=== PATIENT | male | born 2005 | race Caucasian/White ===

== ENCOUNTER 2024-04-17 17:46 | Emergency (ER) | payer BC, SELFPAY ==
--- NOTE | 2024-04-17 17:50 | ED.URI ---
HPI - URI/Sore Throat General Chief Complaint: Skin/Abscess/Foreign Body Stated Complaint: rash on Arm Time Seen by Provider: 04/17/24 18:06 Source: patient, RN notes reviewed and old records reviewed Mode of arrival: ambulatory Limitations: no limitations History of Present Illness HPI Narrative: 18-year-old male presents to the [facility] with 2 week history of rash to bilateral outer arms, lower abdomen bilateral. Recently changed laundry detergent. Patient describes the rash is very itchy. Onset (ago): week(s) (2) Related Data Allergies Allergy/AdvReac Type Severity Reaction Status Date / Time amoxicillin (From Augmentin) Allergy Mild Unknown Verified 04/17/24 18:08 clavulanic acid (From Allergy Mild Unknown Verified 04/17/24 18:08 Augmentin) hepatitis a immune Allergy Mild HIVES X 1 Verified 04/17/24 18:08 globulin,human MONTH meningococcal vaccine A and C Allergy Unknown Swelling Verified 04/17/24 18:08 Penicillins Allergy Unknown Rash Verified 04/17/24 18:08 Review of Systems Review of Systems: All systems reviewed & are unremarkable except as noted in HPI and below Constitutional: Constitutional: Reports no additional constitutional complaints ENT: Reports system reviewed and no additional complaints, except as documented Cardiovascular: Cardiovascular: Reports no additional cardiovascular complaints, Denies chest pain and Denies dyspnea Respiratory: Respiratory: Reports no additional respiratory complaints, Denies chest congestion, Denies cough and Denies dyspnea Musculoskeletal: Musculoskeletal: Reports no additional musculoskeletal complaints Integumentary/Breasts: Skin/Breast: Reports as per HPI and Reports rash PMFSH Comments At the time of my signature, I reviewed and agree with the nursing past medical, surgical, social, and family history. There is no relevant family history pertinent to the patient complaint. Exam Const: General: cooperative, healthy appearing, comfortable, no acute distress, well developed, alert and well nourished Nutritional Appearance: well nourished Orientation/consciousness: patient oriented x3 Limitations: no limitations HENMT: Head: normal to inspection Eyes: General: appearance normal, both eyes and all related structures Alignment and Position: alignment normal Neck: Neck: normal visual inspection, full ROM, no lymphadenopathy and no meningeal signs Chest: Chest palpation & inspection: normal inspection of the chest Resp: Effort & Inspection: normal respiratory effort and able to speak in complete sentences Auscultation: clear to auscultation bilaterally, no crackles, no rales, no rhonchi and no wheezes Cardio: Rate: regular rate Skin: Rashes: rashes noted Other: Rash is bilateral outer arms, worse on the left than the right. Left arm cleaned had multiple areas of induration, mild swelling. Also concern for cellulitic changes to the left outer upper arm. Areas to bilateral outer abdomen with similar rash, states that has not been there as long. Neuro: General: patient oriented x3, gait normal, moves all extremities and no meningeal signs Cognition (Neuro): normal cognition Speech: normal speech Gait exam (Neuro): Normal gait present Extrem: General: normal to inspection, full ROM, capillary refill normal and normal gait Psych: Appearance: grossly normal and well kempt Mental Status: mental status grossly normal Speech and movement: Normal speech and movement present and Clear speech present Affect: normal affect Attitude: cooperative Course Course Level of Care: Express Care Visit Vital Signs Vital signs: Vital Signs Temperature 98.2 F 04/17/24 17:57 Pulse Rate 73 04/17/24 17:57 Respiratory Rate 18 04/17/24 17:57 Blood Pressure 133/68 04/17/24 17:57 Pulse Oximetry 100 04/17/24 17:57 Oxygen Delivery Room Air 04/17/24 17:57 Temperature 98.2 F 04/17/24 17:57 Pulse Rate 73 04/17/24 17:57 Respiratory Rate 18 04/17/24 17:57 Blood Pressure 133/68 04/17/24 17:57 Pulse Oximetry 100 04/17/24 17:57 Oxygen Delivery Room Air 04/17/24 17:57 Reviewed MDM - URI/Sore Throat MDM Narrative Medical decision making narrative: Patient with rash after changing laundry detergent. Right arm appears to be dermatitis, left arm concern for both dermatitis, has been scratching and was dirty on arrival, cleaned with soap and water. Concern for cellulitic changes to the left outer upper arm. No fluctuance. No purulent drainage. Denies fevers. Patient is appropriate for outpatient treatment with close follow-up. Discussed signs and symptoms proceed to emergency room which he verbalized understanding. Discharge instructions reviewed with patient, as well as provided in writing per nursing staff. The instructions also include specific and strict return/GO TO THE ER as well as f/u information. All questions have been answered, and the patient deny any further questions with discharge and discharge plan. Some parts of this dictation were generated by voice recognition software and may contain typographical and/or grammatical inaccuracies. Differential Diagnosis Differential diagnosis: Likely other (Cellulitis, dermatitis, allergic reaction, hives) Critical Care Time Critical Care Time Critical Care Time: No Discharge Plan Discharge Clinical Impression: Dermatitis Patient Disposition: Home, Self-Care Condition: Stable Instructions: Antibiotic Form, Dermatitis (ED) Additional Instructions: The most important part of your care is follow up with Primary care provider. Take Benadryl 25 mg every 8 hours for itching Take Zyrtec every day Take Pepcid 20mg daily for 7 days Take the steroids starting in the morning Apply hydrocortisone twice daily Avoid hot showers, Take cool showers. Hot showers will make rashes worse Apply cool compresses every 2-3 hours for 15 minutes Go to the ER for new or worsening symptoms such as shortness of breath. Patient Language: Dutch Prescriptions: New prednisone 20 mg tablet See Rx Instructions .Route .COMPLEX Qty: 18 0RF Rx Instructions: Take 60 mg daily for 3 days, 40 mg daily for 3 days, 20 mg daily for 3 days doxycycline monohydrate 100 mg tablet 100 mg PO BID Qty: 14 0RF Follow-up/Referrals: UNKNOWN,DOCTOR [Non-Staff] - Time of Disposition: 18:11
[2024-04-17 17:57] VITALS: BP 133/68; PULSE 73; RESP 18; TEMP 36.8; O2SAT 100
--- OUTSIDE RECORDS SUMMARY | 2024-04-17 19:00 | XMS_ITS | Patient Health Summary ---
Author Organization [facility] Address [address] [place] [address] Care Team Providers Care Assistant Field Hockey Coach Name Role Phone Alex Estrada MD Primary Care Provider [phone] Note from [facility],non-owned Affiliates and Associated Physician Practices is amultiple site organization consisting of ambulatory clinics and hospital sitesin [place], [place], [place] and [place]. This disclosure is being madepursuant to the Care Everywhere program and may not contain all information available regarding this patient. Last updated 17.[facility] [place] Allergies * Augmentin * Penicillins Medications * Be aware that medications may not be up to date on this document. Alwaysverify current medications with the patient. * ibuprofen (MOTRIN) 200 MG tablet Take by mouth every 6 hours as needed for Pain Active Problems Problem Noted Date Diagnosed Date Closed Salter-Norris type II physeal fracture of distal end of right radius 10/15/2016 Closed fracture of radius 10/15/2016 Social History Tobacco Use Types Packs/Day Years Used Date Smoking Tobacco: Never Sex and Gender Information Value Date Recorded Sex Assigned at Not on file Gender Identity Not on file Sexual Orientation Not on file Last Filed Vital Signs Vital Sign Reading Time Taken Comments Blood Pressure - - Pulse - - Temperature - - Respiratory Rate - - Oxygen Saturation - - Inhaled Oxygen Concentration - - Weight 64.2 kg (141 lb 8.6 oz) 11/12/2016 8:47 A M CDT Height 154.8 cm (5' 0.95 ) 10/15/2016 8:53 AM CD T Body Mass Index - - Care Teams Assistant Field Hockey Coach Relationship Specialty Start Date End Date Alex Estrada MD [address] [place] [address] PCP - General Pediatrics 10/15/16
--- OUTSIDE RECORDS SUMMARY | 2024-04-17 19:00 | XMS_ITS | Referral Summary ---
Author Organization [facility] Address [address] [place] [address] Care Team Providers Care Support Engineer Name Role Phone Alex Estrada MD Primary Care Provider [phone] Source Comments [facility],non-owned Affiliates and Associated Physician Practices is amultiple site organization consisting of ambulatory clinics and hospital sitesin [place], [place], [place] and [place]. This disclosure is being madepursuant to the Care Everywhere program and may not contain all information available regarding this patient. Last updated 17.[facility] Allergies Active Allergy Reactions Criticality Noted Date Comments Augmentin 11/12/2016 Penicillins 10/15/2016 Medications * Be aware that medications may not be up to date on this document. Alwaysverify current medications with the patient. Medication Sig Dispensed Refills Start Date End Date Status ibuprofen (MOTRIN) 200 MG tablet Take by mouth every 6 hours as needed for Pain Active Active Problems Problem Noted Date Diagnosed Date [...] CD T Body Mass Index - - Plan of Treatment Not on file Care Teams Support Engineer Relationship Specialty Start Date End Date Alex Estrada MD [address] [place] [address] PCP - General Pediatrics 10/15/16
--- OUTSIDE RECORDS SUMMARY | 2024-04-17 19:00 | XMS_ITS | Clinical Summary ---
Author Organization [facility] Address [address] [place] [address] Care Team Providers Care Data Modeler Name Role Phone Alex Estrada MD Primary Care Provider Source Comments [facility],non-owned Affiliates and Associated Physician Practices is amultiple site organization consisting of ambulatory clinics and hospital sitesin [place], [place], [place] and [place]. This disclosure is being madepursuant to the Care Everywhere program and may not contain all information available regarding this patient. Last updated 17.[facility] Allergies Active Allergy Reactions Criticality Noted Date [...] Mass Index - - Plan of Treatment Health Maintenance Due Date Last Done Comments HIV SCREENING 10/19/2019 HPV VACCINE (1 - Male 3-dose series) 10/19/2019 MENINGOCOCCAL (Group B) VACC INE (1 of 2 - Standard) 2020 HEPATITIS C SCREENING 10/14/2022 DTAP/TDAP/TD VACCINES (1 - Tdap) 10/19/2023 HEPATITIS B VACCINE (1 of 3 - 19+ 3-dose series) 10/19/2023 COVID-19 VACCINE (1 - 2023-2 5 season) 2023 INFLUENZA VACCINE (#1) 2023 DEPRESSION SCREENING 02/23/2024 ZOSTER VACCINE (1 of 2) 2054 HIB VACCINE Aged Out No longer eligi ble based on patient's age to complete this topic MENINGOCOCCAL VACCINE Aged Out No bridger bryson eligible based on patient's age to complete this topic PNEUMOCOCCAL VACCINE Aged Out No long er eligible based on patient's age to complete this topic Care Teams Data Modeler Relationship Specialty Start Date End Date Alex Estrada MD [address] [place] [address] PCP - General Pediatrics 10/15/16
--- OUTSIDE RECORDS SUMMARY | 2024-04-17 19:00 | XMS_ITS | Clinical Summary ---
Author Organization [facility] Address [address] [place] [id number] Care Team Providers Care Forestry Faculty Member Name Role Phone Unavailable Primary Care Provider Unavailabl e Social History Tobacco Use Types Packs/Day Years Used Date Smoking Tobacco: Never Assessed Sex and Gender Information Value Date Recorded Sex Assigned at Not on file Legal Sex Male 8:34 PM CDT Gender Identity Not on file Sexual Orientation Not on file Plan of Treatment Health Maintenance Due Date Last Done Comments Annual Physical 10/19/2007 HPV Vaccines (1 - Male 3-dos e series) 10/19/2019 Meningococcal B Vaccine (1 o f 2 - Standard) 2020 Hepatitis C 2022 DTaP, Tdap and Td Vaccines ( 1 - Tdap) 10/19/2023 Hepatitis B Vaccines (1 of 3 - 19+ 3-dose series) 10/19/2023 COVID-19 Vaccine (1 - 2023-2 5 season) 2023 Influenza Adult (#1) 2023 Meningococcal Vaccine Aged Out No bridger bryson eligible based on patient's age to complete this topic Pneumococcal Vaccine: Pediat rics (0 to 5 Years) and At-Risk Patients (6 to 64 Years) Aged Out No longer eligible b ased on patient's age to complete this topic RSV Immunizations Under 20 Months Aged Out No longer eligible based on patient's age to complete this topic
== END 2024-04-17 18:20 | disposition home or self-care (01) ==
PROVIDERS: Emergency Provider Nurse Practitioner
DX: L30.9 Dermatitis, unspecified (principal)
CPT/HCPCS: 99213; G0463